=== PATIENT | female | born 1960 | race Native Hawaiian/Other Pacific Islander ===

== ENCOUNTER 2021-02-24 20:49 | Emergency (ER) | payer OTHER ==
[~2021-02-24] VITALS: Ht 167.6 cm; Wt 61.2 kg
[2021-02-24 20:49] VITALS: BP 140/64; TEMP 97.2
[2021-02-24 21:18] LABS: PLATELET COUNT 192 K/uL (152-353)
[2021-02-24] MEDS ORDERED: BRIMONIDINE0.2 % OPTH (22:47)
[2021-02-24] MEDS ORDERED: BUDE1AER3 INH (22:48)
[2021-02-24] MEDS ORDERED: DONEPEZIL HYDRO10 MG PO (22:49)
[2021-02-24] MEDS ORDERED: QUETIAPINE50 MG PO (22:50)
[2021-02-24] MEDS ORDERED: QUETIAPINE200 MG PO (22:51)
[2021-02-24] MEDS ORDERED: SERTRALINE HYD100 MG PO (22:53)
[2021-02-24] MEDS ORDERED: ALBUTEROL INH (22:56)
== END 2021-02-24 22:03 | disposition still patient (30) ==
LOC: ED 20:49
PROVIDERS: Emergency Medicine Emergency Medical Services
DX: F03.91 Unspecified dementia, unspecified severity, with behavioral disturbance (principal); Z11.52 Encounter for screening for COVID-19; Z04.6 Encounter for general psychiatric examination, requested by authority
CPT/HCPCS: 36415; 80053; 85027; 87635; 93005; 99283; U0003

== ENCOUNTER 2021-03-15 06:42 | Emergency (ER) | payer OTHER ==
[~2021-03-15] VITALS: Ht 170.2 cm; Wt 57.6 kg
[2021-03-15 06:42] VITALS: TEMP 98.2
[~2021-03-15 06:42] MED LIST: ALBUTEROL INH; BRIMONIDINE0.2 % OPTH; BUDE1AER3 INH; DONEPEZIL HYDRO10 MG PO; QUETIAPINE200 MG PO; QUETIAPINE50 MG PO; SERTRALINE HYD100 MG PO
[2021-03-15 07:22] LABS: PLATELET COUNT 219 K/uL (152-353)
[2021-03-15 07:50] LABS: POTASSIUM 4.3 mmol/L (3.6-5.2); SODIUM 142 mmol/L (136-145)
[2021-03-15 08:04] LABS: PARTIAL THROMBOPLASTIN TIME 22.1 SECONDS (24.5-33.6)
[2021-03-15 11:27] VITALS: BP 113/48
== END 2021-03-15 11:27 | disposition other institution (70) ==
LOC: ED 06:45
PROVIDERS: Emergency Medicine Emergency Medical Services
DX: R55 Syncope and collapse (principal); S01.112A Laceration without foreign body of left eyelid and periocular area, initial encounter; S40.011A Contusion of right shoulder, initial encounter; M25.562 Pain in left knee; W01.198A Fall on same level from slipping, tripping and stumbling with subsequent striking against other object, initial encounter; Y92.238 Other place in hospital as the place of occurrence of the external cause
CPT/HCPCS: 36415; 80053; 81000; 82550; 82553; 83605; 84484; 85027; 85610; 85730; 87040; 90715; 93005; 96360; 99284; J2405